=== PATIENT | female | born 1985 | race Hispanic/Latino ===

== ENCOUNTER 2018-06-11 19:21 | Emergency (ER) | payer BC, OTHER | END 2018-06-11 21:31 | disposition home or self-care (01) | LOC: ERS 19:21 | DX: H65.91 Unspecified nonsuppurative otitis media, right ear (principal); H60.91 Unspecified otitis externa, right ear | CPT/HCPCS: 99282 ==

== ENCOUNTER 2018-12-31 10:04 | Emergency (ER) | payer BC, SELFPAY | END 2018-12-31 10:47 | disposition home or self-care (01) | LOC: ERS 10:04 | DX: J06.9 Acute upper respiratory infection, unspecified (principal) | CPT/HCPCS: 87804; 99283 ==

== ENCOUNTER 2020-02-10 10:02 | Emergency (ER) | payer BC, OTHER | END 2020-02-10 10:30 | disposition home or self-care (01) | LOC: ERS 10:02 | DX: J06.9 Acute upper respiratory infection, unspecified (principal); Z20.828 Contact with and (suspected) exposure to other viral communicable diseases | CPT/HCPCS: 99281 ==

== ENCOUNTER 2020-05-25 17:07 | Emergency (ER) | payer BC, OTHER ==
[2020-05-26 14:42] LABS: SARS-CoV-2 MS2 Positive; SARS-CoV-2 N Gene Negative; SARS-CoV-2 S Gene Negative; SARS-CoV-2 orf1ab Negative
== END 2020-05-25 17:47 | disposition home or self-care (01) ==
LOC: ERS 17:07
DX: Z20.828 Contact with and (suspected) exposure to other viral communicable diseases (principal)
CPT/HCPCS: 87635; 99283; U0003

== ENCOUNTER 2023-08-10 08:32 | Day surgery (SDC) | payer OTHER, SELFPAY ==
[2023-08-10 09:06] LABS: Bacteria/HPF None Seen HPF (None Seen); Bilirubin Negative (Negative); Blood, Urine Trace (Negative); CAUTI Indications for Culture Dysuria,urgency,freq; Clarity Clear (Clear); Glucose, Urine (Dipstick) Normal (Negative); Ketone, Urine Negative (Negative); Leukocyte Negative Leu/uL (Negative); Nitrite Negative (Negative); Protein, Urine (Dipstick) Negative (Neg-Trace); RBC/HPF 0-3 HPF (0-3); Specific Gravity, Urine 1.007 (1.002-1.036); Squamous Epithelial 0-3 HPF (0-3); Urobilinogen Normal mg/dL (Less than 2); WBC/HPF 0-3 HPF (0-3); pH, Urine 5.5 (5.0-9.0)
[2023-08-10 09:07] LABS: Urine Culture Reflex No No
[2023-08-10] MEDS ORDERED: Morphine 4 MG/ML VIAL ONE (09:17)
[2023-08-10] MEDS ORDERED: Dicyclomine 20 MG TAB ONE (09:17)
[2023-08-10] MEDS ORDERED: Ondansetron PF 4 MG/2 ML Vial ONE ×2 (09:17→14:40)
[2023-08-10] MEDS ORDERED: Ketorolac Tromethamine 30 MG/ML VIAL ONE (09:17)
[2023-08-10 09:29] LABS: #Monocytes 0.6 thou/uL (0.11-0.59); #Neutrophils 9.4 thou/uL (1.40-6.50); %Basophils 0.2 % (0.0-1.0); %Eosinophils 0.2 % (0.0-10.0); %Lymphocytes 11.8 % (21.0-51.0); %Monocytes 4.9 % (0.0-10.0); %Neutrophils 82.5 % (42.0-75.0); Hematocrit 40.1 % (36.0-47.0); Hemoglobin 13.1 g/dL (12.0-16.0); Mean Corpuscular HGB CONC 32.7 g/dL (32.0-36.0); Mean Corpuscular Hemoglobin 26.9 pg (27.0-31.0); Mean Corpuscular Volume 82.3 fl (78.0-98.0); Mean Platelet Volume 11.3 fL (7.4-10.4); Platelet Count 314 10x3/uL (130-400); RBC Distribution Width 13.1 % (11.5-14.5); Red Blood Cell (RBC) Count 4.87 mill/uL (4.20-5.40); White Blood Cell (WBC) Count 11.3 10x3/uL (4.8-10.8)
[2023-08-10 09:33] LABS: BHCG - Serum Negative (NEGATIVE); Pregs Control Background? CLEAR/WHITE (CLR/WHITE); Pregs Control Bar Appear? YES (CONTROL BAR)
[2023-08-10 09:52] LABS: ALT (SGPT) 20 U/L (8-55); AST (SGOT) 16 U/L (5-34); Albumin 4.8 g/dL (3.5-5.0); Alkaline Phosphatase 81 U/L (40-110); Anion Gap 14 mmol/L (10-20); BUN (Urea Nitrogen) 8 mg/dL (7.0-18.7); Bilirubin, Total 0.5 mg/dL (0.2-1.2); Calc. Creatinine Clearance 0 mL/min (70-130); Calcium 9.6 mg/dL (7.8-10.44); Carbon Dioxide 24 mmol/L (22-29); Chloride 102 mmol/L (98-107); Estimated GFR 106; Glucose 114 mg/dL (70-105); Lipase 17 U/L (8-78); Potassium 3.4 mmol/L (3.5-5.1); Protein, Total 8.8 g/dL (6.0-8.3); Sodium 137 mmol/L (136-145)
[2023-08-10] MEDS ORDERED: Bupivacaine 0.25% HCL 30 ML VIAL ONE (13:36)
[2023-08-10] MEDS ORDERED: EPINEPHrine 1 MG/ML AMP ONE (13:36)
[2023-08-10] MEDS ORDERED: fentaNYL PF 100 MCG/2 ML SYRINGE ONE (14:15)
[2023-08-10] MEDS ORDERED: CEFAZOLIN 2 GM VIAL ONE (14:18)
[2023-08-10] MEDS ORDERED: Sodium Chloride 0.9% 100 ML ONE (14:18)
[2023-08-10] MEDS ORDERED: SUGAMMADEX SODIUM 200 MG/2 ML VIAL ONE (14:22)
[2023-08-10] MEDS ORDERED: Lidocaine 1% PF 5 ML VIAL ONE (14:40)
[2023-08-10] MEDS ORDERED: PROPOFOL 200 MG/20 ML VIAL ONE (14:40)
[2023-08-10] MEDS ORDERED: Rocuronium Bromide 10 MG/ML (10ML VIAL) ONE (14:40)
[2023-08-10] MEDS ORDERED: Dexamethasone 20 MG/5 ML VIAL ONE (14:40)
[2023-08-10] MEDS ORDERED: HYDROcodone/Acetaminophen 5/325 mg Tablet PO PRN (16:42)
== END 2023-08-10 17:39 | disposition home or self-care (01) ==
LOC: ERS 08:32 → SDC/OP 12:33
PROVIDERS: ATTEND Surgery
PROC: 0WQF0ZZ Repair Abdominal Wall, Open Approach (ICD-10-PCS; principal; 2023-08-10)
DX: K42.0 Umbilical hernia with obstruction, without gangrene (principal)
CPT/HCPCS: 74177; 80053; 81001; 83690; 84703; 85025; 93005; J0171; J1100; J1885; J2270; J2405; J2704; J3490; S0020